=== PATIENT | male | born 1990 | race African-American/Black ===

== ENCOUNTER 2019-11-08 19:06 | Emergency (ER) | payer SELFPAY ==
[~2019-11-08] VITALS: Ht 182.9 cm; Wt 120.0 kg
[2019-11-08] MEDS ORDERED: SODIUM CHLORIDE 0.9% 1,000 ML IV ONE (19:44)
[2019-11-08] MEDS ORDERED: LIDOCAINE 1%/EPI 1:100,000 10 ML VIAL IJ ONE (19:45)
[2019-11-08] MEDS ORDERED: LIDOCAINE HCL/EPINEPHRINE 1%-EPI 1:100,000 20 ML VIAL INFIL NR (19:45)
[2019-11-08] MEDS ORDERED: LORAZEPAM 2MG/ML CPJ IV ONE (21:00)
[2019-11-08 21:44] LABS: BASOPHILS % 0.7 % (0.0-2.0); EOSINOPHILS % 0.1 % (0.0-5.0); HEMATOCRIT. 42.6 % (42.0-52.0); HEMOGLOBIN. 14.2 g/dL (14.0-18.0); LYMPHOCYTES % 16.4 % (20.0-50.0); MEAN CORPUSCULAR HEMOGLOBIN 28.6 pg (28.0-32.0); MEAN CORPUSCULAR VOLUME 85.6 fL (80.0-94.0); MEAN PLATELET VOLUME 8.7 fl (7.4-10.4); MONOCYTES % 6.1 % (2.0-8.0); NEUTROPHILS % 76.7 % (40.0-76.0); PLATELET 349 x1000/uL (130-400); RED BLOOD CELL COUNT 4.98 mill/uL (4.7-6.1); RED CELL DISTRIBUTION WIDTH 16.3 % (11.6-14.6)
[2019-11-08 21:52] LABS: CHLORIDE 109 mEq/L (98-107)
[2019-11-08 21:56] LABS: ETHANOL BLOOD 226 mg/dL
[2019-11-08 22:10] LABS: CLARITY URINE CLEAR (CLEAR); COLOR URINE YELLOW (YELLOW); KETONES URINE NEGATIVE (NEGATIVE); LEUKOCYTE ESTERASE URINE NEGATIVE (NEGATIVE); NITRITE URINE NEGATIVE (NEGATIVE); OCCULT BLOOD URINE 1+ (NEGATIVE); PH URINE 5.5 (4.5-8.0); PROTEIN URINE NEGATIVE (NEGATIVE); SPECIFIC GRAVITY URINE 1.002 (1.005-1.030); UROBILINOGEN URINE 0.2 E.U./dL (0.2-1.0)
[2019-11-08 22:27] LABS: *AMPHETAMINES SCREEN URINE NEGATIVE (NEGATIVE); *BARBITURATES SCREEN URINE NEGATIVE (NEGATIVE); *BENZODIAZEPINES SCREEN URINE PRESUMTIVE POSITIVE (NEGATIVE); *COCAINE SCREEN URINE PRESUMTIVE POSITIVE (NEGATIVE); METHADONE URINE SCREEN NEGATIVE (NEGATIVE); OPIATES URINE SCREEN NEGATIVE (NEGATIVE)
[2019-11-08 22:28] LABS: CANNABINOID URINE SCREEN NEGATIVE (NEGATIVE); PHENCYCLIDINE URINE SCREEN NEGATIVE (NEGATIVE)
[2019-11-08 23:37] VITALS: BP 114/51
== END 2019-11-08 23:39 | disposition home or self-care (01) ==
LOC: ER 19:06
DX: F14.129 Cocaine abuse with intoxication, unspecified (principal); F10.229 Alcohol dependence with intoxication, unspecified; R41.82 Altered mental status, unspecified; S20.452A Superficial foreign body of left back wall of thorax, initial encounter; Z78.1 Physical restraint status; Y90.7 Blood alcohol level of 200-239 mg/100 ml; Y35.833A Legal intervention involving a conducted energy device, suspect injured, initial encounter; Y93.89 Activity, other specified; Y92.89 Other specified places as the place of occurrence of the external cause
CPT/HCPCS: 36415; 70450; 80053; 80305; 80307; 80320; 80329; 81003; 85025; 93005; 99284; J2060; J3490; J7030; Z7610; G0480